=== PATIENT | male | born 1980 | race Caucasian/White ===

== ENCOUNTER 2017-03-28 03:25 | Emergency (ER) | payer OTHER ==
[2017-03-28 03:42] VITALS: RESP 18
--- NOTE | 2017-03-28 04:07 | C.PDOC ---
History Of Present Illness 37 year old male complains of right wrist pain after slip and fall. Patient states he has history of old fracture to same arm. Time Seen by Provider: 03/28/17 03:35 Chief Complaint (Nursing): Finger,Hand,&Wrist History Per: Patient History/Exam Limitations: no limitations Onset/Duration Of Symptoms: Sudden Onset Current Symptoms Are (Timing): Better Quality: "Pain" Severity: Mild Exacerbating Factor(s): Strenuous Use Of Affected Area, Movement Past Medical History Reviewed: Historical Data, Nursing Documentation, Vital Signs Vital Signs: Last Vital Signs Temp 98.7 F 03/28/17 03:39 Pulse 95 H 03/28/17 03:39 Resp 18 03/28/17 03:39 BP 122/72 03/28/17 03:39 Pulse Ox 95 03/28/17 04:09 - Medical History PMH: No Chronic Diseases Surgical History: Tonsillectomy Family History: States: Unknown Family Hx - Social History Hx Tobacco Use: Yes Hx Alcohol Use: Yes Hx Substance Use: No - Immunization History Hx Tetanus Toxoid Vaccination: No Hx Influenza Vaccination: No Hx Pneumococcal Vaccination: No Review Of Systems Except As Marked, All Systems Reviewed And Found Negative. Musculoskeletal: Positive for: Arm Pain Physical Exam - Physical Exam Appears: Non-toxic, No Acute Distress Skin: Warm, Dry, No Ecchymosis Head: Atraumatic, Normacephalic Eye(s): bilateral: Normal Inspection Neck: Normal ROM Chest: Symmetrical Extremity: Normal ROM, Tenderness (Right radial wrist), No Deformity, Swelling ( mild to right radial wrist) Pulses: Right Radial: Normal Neurological/Psych: Oriented x3, Normal Speech Gait: Steady ED Course And Treatment O2 Sat by Pulse Oximetry: 95 Medical Decision Making Medical Decision Making: Impression: wrist injury Plan: right wrist xray Progress: Xray shows old healed fracture no acute fracture or dislocation Velcro volar splint applied. Information given regarding prelimanary nature of x -ray reading, with possibility that a fracture not initially detected in the ED may be found on final reading, with subsequent notification. Patient was therefore told that close follow up care for further evaluation is mandatory and further imaging may be necessary. Disposition Counseled Patient/Family Regarding: Studies Performed, Diagnosis, Need For Followup - Disposition Referrals: Betito Borrego MD [Primary Care Provider] - Luigi Keita MD [Staff Provider] - Disposition: HOME/ ROUTINE Disposition Time: 04:10 Condition: STABLE Additional Instructions: Xray reviewed showing no acute fracture or dislocation. Advise to rest, ice and elevate joint. Take pain medication as needed, ibuprofen 600mg every 8 hours with food to not upset stomach. If pain persists, follow up with orthopedic in one week. Instructions: Contusion in Adults (DC) Forms: Work Excuse - POA Present On Arrival: None - Clinical Impression Clinical Impression: Strain of wrist, Contusion of wrist - PA / [employer] / Resident Statement MD/DO has reviewed & agrees with the documentation as recorded.
[2017-03-28 04:20] VITALS: BP 129/84; PULSE 72; TEMP 98; O2SAT 97
--- NOTE | 2017-03-28 08:31 | RAD ---
PROCEDURE: Right Wrist Radiographs. HISTORY: pain s.p fall COMPARISON: None. FINDINGS: BONES: No acute fracture. JOINTS: Narrowing of the radiocarpal articulation. There are small erosions of the distal ulna including ulnar styloid process. This raises suspicion of an inflammatory arthropathy such as rheumatoid arthritis. There are no distal radial articular erosions. The intercarpal articulations are unremarkable. Normal carpal alignment is maintained. SOFT TISSUES: Normal. OTHER FINDINGS: None. IMPRESSION: Erosion of ulnar styloid process and distal ulna and narrowing of radiocarpal articulation. Possible inflammatory arthropathy. No acute fracture.
== END 2017-03-28 04:18 | disposition home or self-care (01) ==
LOC: C.ER 03:25 → SUPCPDRO 03:25 → C.ER 04:18
DX: S66.919A Strain of unspecified muscle, fascia and tendon at wrist and hand level, unspecified hand, initial encounter (principal); S60.211A Contusion of right wrist, initial encounter; W01.0XXA Fall on same level from slipping, tripping and stumbling without subsequent striking against object, initial encounter; Y92.9 Unspecified place or not applicable

== ENCOUNTER 2017-05-25 14:06 | Emergency (ER) | payer OTHER ==
[2017-05-25 14:13] VITALS: O2SAT 96
--- NOTE | 2017-05-25 15:34 | C.PDOC ---
History Of Present Illness 37 y/o male presents to ED with complaints of chest pain and pain when taken deep breaths. Patient states Sunday night he was playing on trampoline and did a "fun flip landing on his neck". Patient went to [facility] on Sunday with chest pain compliant and had CXR that was normal. Patient reports pain continued and tried otc medication with no relief. Patient saw PMD DR. Borrego on Sunday and had a 2nd CXR that was normal and was advised to come to ED for a CT scan. Prescription was given. No other complaints at this time. Time Seen by Provider: 05/25/17 14:17 Chief Complaint (Nursing): Chest Pain History Per: Patient History/Exam Limitations: no limitations Onset/Duration Of Symptoms: Days Current Symptoms Are (Timing): Still Present Past Medical History Reviewed: Historical Data, Nursing Documentation, Vital Signs Vital Signs: Last Vital Signs Temp 98.1 F 05/25/17 17:22 Pulse 62 05/25/17 17:22 Resp 20 05/25/17 17:22 BP 137/81 05/25/17 17:22 Pulse Ox 96 05/25/17 17:40 Surgical History: Tonsillectomy Family History: States: Unknown Family Hx - Social History Hx Tobacco Use: Yes Hx Alcohol Use: Yes Hx Substance Use: No - Immunization History Hx Tetanus Toxoid Vaccination: No Hx Influenza Vaccination: No Hx Pneumococcal Vaccination: No Review Of Systems Constitutional: Negative for: Fever, Chills Cardiovascular: Positive for: Chest Pain. Negative for: Palpitations Respiratory: Negative for: Shortness of Breath Gastrointestinal: Negative for: Nausea, Vomiting Skin: Negative for: Rash Physical Exam - Physical Exam Appears: Non-toxic, No Acute Distress Skin: Normal Color, Warm, No Rash Head: Atraumatic, Normacephalic Eye(s): bilateral: Normal Inspection Oral Mucosa: Moist Neck: Normal ROM, No Midline Cervical Tenderness, Supple Chest: Symmetrical, No Deformity, Tenderness (To proximal sternum), No Ecchymosis, No Subcutaneous Emphysema Cardiovascular: Rhythm Regular, No Murmur Respiratory: Normal Breath Sounds, No Rales, No Rhonchi, No Wheezing Gastrointestinal/Abdominal: Soft, No Tenderness, No Guarding, No Rebound Back: No CVA Tenderness Extremity: Normal ROM, No Pedal Edema, Capillary Refill (<2 seconds), No Swelling Neurological/Psych: Oriented x3, Normal Speech, Normal Cognition, Normal Motor, Normal Sensation ED Course And Treatment ECG: Interpreted By Me, Viewed By Me ECG Rhythm: Sinus Rhythm ECG Interpretation: Normal Rate From EC (bpm) O2 Sat by Pulse Oximetry: 96 (RA) Pulse Ox Interpretation: Normal Medical Decision Making Medical Decision Making: Plan: * CT SCAN 528 pm: discussed with Dr Borrego; pt may follow up in his office next week. p[t will be given rx for pain medication. Disposition Discussed With Dr.: Betito Borrego Doctor Will See Patient In The: Office Counseled Patient/Family Regarding: Studies Performed, Diagnosis, Need For Followup, Rx Given - Disposition Referrals: Betito Borrego MD [Staff Provider] - Disposition: HOME/ ROUTINE Disposition Time: 17:37 Condition: STABLE Additional Instructions: Take pain medication as prescribed (with food). Avoid heavy lifting. Follow up with Dr Borrego early next week. Return to ER for any worse symptoms, difficulty breathing, or any other concerns. . 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 - Scribe Statement The provider has reviewed the documentation as recorded by the Dedrickibmaureen Regalado All medical record entries made by the Dedrickibmaureen were at my direction and personally dictated by me. I have reviewed the chart and agree that the record accurately reflects my personal performance of the history, physical exam, medical decision making, and the department course for this patient. I have also personally directed, reviewed, and agree with the discharge instructions and disposition.
--- NOTE | 2017-05-25 16:40 | CT ---
CT chest without IV contrast Indication: sternal chest pain s/p trauma Technique: Contiguous axial images were obtained through the chest without intravenous contrast enhancement. Sagittal and coronal reconstructions were generated and reviewed. This CT exam was performed using 1 or more of the falling dose reduction techniques: Automated exposure control, adjustment of the MAA and/or kV according to patient size, and/or use of iterative reconstruction technique. Radiation dose (DLP): 702.16 MGy-cm. Comparison: Chest x-ray performed 05/22/17 Findings: Visualized portions of the inferior thyroid gland appear unremarkable. The unenhanced mediastinal and hilar vascular structures appear grossly unremarkable. The heart appears within normal limits of size. A hazy soft tissue opacities within the anterior mediastinum, likely residual thymic tissue. No focal consolidation. No pleural effusion. No pneumothorax. No suspicious pulmonary nodules measuring greater than 5 mm. Limited visualization of the noncontrast upper abdomen appears grossly unremarkable. 12 mm probable splenule. Small hiatal hernia/distal esophageal wall thickening. Sternal fracture involving the manubrium. Adjacent soft tissue swelling as well as small fluid likely small hematoma. Associated focus of air. Impression: Displaced sternal fracture involving the manubrium. Adjacent soft tissue swelling as well as small fluid likely small hematoma. Associated focus of air.
[2017-05-25 17:23] VITALS: BP 137/81; PULSE 62; RESP 20; TEMP 98.1
--- NOTE | 2017-05-30 00:36 | CARD ---
APPROVED REPORT EKG Measurement Heart [id number] <Conclusion> Normal sinus rhythm Normal ECG
== END 2017-05-25 17:53 | disposition home or self-care (01) ==
LOC: C.ER 14:06
DX: S22.21XD Fracture of manubrium, subsequent encounter for fracture with routine healing (principal); W17.89XD Other fall from one level to another, subsequent encounter
CPT/HCPCS: 71250; 96372; 99285; J1885

== ENCOUNTER 2017-11-20 02:10 | Emergency (ER) | payer OTHER ==
[2017-11-20 02:16] VITALS: TEMP 98; O2SAT 100
--- NOTE | 2017-11-20 03:17 | C.PDOC ---
History Of Present Illness 37yo male, no past medical history, presents to ER with complaints of left sided facial numbness which he noticed when he woke up from his sleep. Patient states he has not had such symptoms before and denies any associated focal weakness. He also denies any tooth pain, cough, sneezing, sore throat, fever, or bodyaches. He has no other complaints. Time Seen by Provider: 11/20/17 03:10 Chief Complaint (Nursing): Weakness/Neurological Deficit History Per: Patient History/Exam Limitations: no limitations Onset/Duration Of Symptoms: Hrs Past Medical History Reviewed: Historical Data, Nursing Documentation, Vital Signs Vital Signs: Last Vital Signs Temp 98.0 F 11/20/17 02:13 Pulse 48 L 11/20/17 06:09 Resp 14 11/20/17 06:09 BP 125/83 11/20/17 06:09 Pulse Ox 100 11/20/17 06:10 - Medical History PMH: Asthma Surgical History: Tonsillectomy Family History: States: Unknown Family Hx - Social History Hx Tobacco Use: Yes Hx Alcohol Use: Yes (took 1 shot last night before sleeping) Hx Substance Use: No - Immunization History Hx Tetanus Toxoid Vaccination: No Hx Influenza Vaccination: No Hx Pneumococcal Vaccination: No Review Of Systems Except As Marked, All Systems Reviewed And Found Negative. ENT: Positive for: Nose Congestion. Negative for: Throat Pain Respiratory: Negative for: Cough, Sputum Neurological: Positive for: Numbness (left face numbness). Negative for: Weakness Physical Exam - Physical Exam Appears: Non-toxic Skin: Normal Color, Warm Head: Atraumatic, Normacephalic Eye(s): bilateral: Normal Inspection, PERRL, EOMI Ear(s): Left: Other (no mastoid tenderness) Neck: Normal ROM, Supple Chest: Symmetrical Cardiovascular: Rhythm Regular Respiratory: Normal Breath Sounds, No Wheezing Gastrointestinal/Abdominal: Normal Exam, Bowel Sounds, Soft, No Tenderness Extremity: Normal ROM Neurological/Psych: Oriented x3, Normal Speech, Normal Cognition, Normal Cranial Nerves, Normal Motor, Normal Sensation, Normal Reflexes Other Neurological Findings: No Facial Palsy ED Course And Treatment - Laboratory Results Result Diagrams: 11/20/17 03:47 11/20/17 03:47 O2 Sat by Pulse Oximetry: 100 (RA) Pulse Ox Interpretation: Normal Medical Decision Making Medical Decision Making: Impression: Electrolyte abnormalities, r/o alcohol related neuropathy Plan: -- Labs -- CT head w/o contrast -- IV Fluids Time: 0550 Labs reviewed and are within normal limits. Time: 0610 EXAM: CT Head Without Intravenous Contrast CLINICAL HISTORY: 37 years old, male; Pain; Headache and other: Left sdie face numbness; Additional info: Parasthesias TECHNIQUE: Axial computed tomography images of the head/brain without intravenous contrast. All CT scans at this facility use one or more dose reduction techniques, viz.: automated exposure control; ma/kV adjustment per patient size (including targeted exams where dose is matched to indication; i.e. head); or iterative reconstruction technique. Coronal and sagittal reformatted images were created and reviewed. COMPARISON: No relevant prior studies available. FINDINGS: Brain: No intracranial hemorrhage. No mass. No definite edema. Ventricles: No hydrocephalus. Bones/joints: No acute fracture. Soft tissues: Unremarkable. Sinuses: Scattered mild mucosal thickening. Mild focal mucosal thickening vs small fluid right maxillary sinus. Mastoid air cells: No mastoid effusion. Orbits: Unremarkable as visualized. IMPRESSION: 1. No definite acute intracranial abnormality. Acute infarction may be CT occult within first 24 hours. If a focal deficit persists, consider followup CT or MRI for further evaluation. 2. Sinus disease. Disposition - Disposition Referrals: [facility] [Outside] Disposition: HOME/ ROUTINE Disposition Time: 06:18 Condition: GOOD Forms: [facility] [employer] (Albanian) - Clinical Impression Clinical Impression: Facial paresthesia - Scribe Statement The provider has reviewed the documentation as recorded by the Scribe (Lizette Murrell) Provider Attestation: All medical record entries made by the Dedrickibe were at my direction and personally dictated by me. I have reviewed the chart and agree that the record accurately reflects my personal performance of the history, physical exam, medical decision making, and the department course for this patient. I have also personally directed, reviewed, and agree with the discharge instructions and disposition.
[2017-11-20] MEDS ORDERED: Sodium Chloride 0.9% 1,000 ML IV ONE (03:21)
[2017-11-20 03:50] LABS: BASO # 0.1 K/uL (0.0-0.2); BASO % 0.9 % (0.0-2.0); EOS # 0.3 K/uL (0.0-0.7); EOS % 4.6 % (0.0-4.0); HEMOGLOBIN 14.3 g/dL (12.0-18.0); LYMPH # 2.7 K/uL (1.0-4.3); LYMPH % 42.6 % (20.0-40.0); MEAN CELL VOLUME 82.8 fL (80.0-94.0); MEAN CORPUSCULAR HEMOGLOBIN 28.6 pg (27.0-31.0); MEAN CORPUSCULAR HGB CONC 34.5 g/dL (33.0-37.0); MEAN PLATELET VOLUME 7.7 fL (7.2-11.7); MONO # 0.5 K/uL (0.0-0.8); MONO % 7.7 % (0.0-10.0); NEUT # 2.8 K/uL (1.8-7.0); NEUT % 44.2 % (50.0-75.0); NRBC % 0.1 % (0.0-2.0); RED CELL DISTRIBUTION WIDTH 13.8 % (11.5-14.5); WHITE BLOOD COUNT 6.3 K/uL (4.8-10.8)
[2017-11-20 04:04] LABS: ALB/GLOB RATIO 1.3 (1.0-2.1); ALBUMIN 4.1 g/dL (3.5-5.0); ALT/SGPT 87 U/L (21-72); AST/SGOT 46 U/L (17-59); BLOOD UREA NITROGEN 11 mg/dL (9-20); CALCIUM 9.1 mg/dl (8.6-10.4); GFR AFRICAN-AMERICAN > 60; GFR NON-AFRICAN AMERICAN > 60
--- NOTE | 2017-11-20 06:01 | CT ---
EXAM: CT Head Without Intravenous Contrast CLINICAL HISTORY: 37 years old, male; Pain; Headache and other: Left sdie face numbness; Additional info: Parasthesias TECHNIQUE: Axial computed tomography images of the head/brain without intravenous contrast. All CT scans at this facility use one or more dose reduction techniques, viz.: automated exposure control; ma/kV adjustment per patient size (including targeted exams where dose is matched to indication; i.e. head); or iterative reconstruction technique. Coronal and sagittal reformatted images were created and reviewed. COMPARISON: No relevant prior studies available. FINDINGS: Brain: No intracranial hemorrhage. No mass. No definite edema. Ventricles: No hydrocephalus. Bones/joints: No acute fracture. Soft tissues: Unremarkable. Sinuses: Scattered mild mucosal thickening. Mild focal mucosal thickening vs small fluid right maxillary sinus. Mastoid air cells: No mastoid effusion. Orbits: Unremarkable as visualized. IMPRESSION: 1. No definite acute intracranial abnormality. Acute infarction may be CT occult within first 24 hours. If a focal deficit persists, consider followup CT or MRI for further evaluation. 2. Sinus disease.
[2017-11-20 06:10] VITALS: BP 125/83; PULSE 48; RESP 14
== END 2017-11-20 06:33 | disposition home or self-care (01) ==
LOC: C.ER 02:10
DX: R20.2 Paresthesia of skin (principal); Z72.0 Tobacco use
CPT/HCPCS: 70450; 80053; 80320; 83735; 85025; 96360; 99285; J7040